=== PATIENT | male | born 1975 | race Hispanic/Latino ===

== ENCOUNTER 2021-04-28 08:23 | Emergency (ER) | payer SELFPAY ==
[~2021-04-28] VITALS: Ht 162.6 cm; Wt 70.3 kg
[2021-04-28] MEDS ORDERED: CLONIDINE HCL 0.1 MG TAB PO ONE (08:45)
[2021-04-28] MEDS ORDERED: CLONIDINE HCL 0.1 MG TAB ONE (08:48)
[2021-04-28] MEDS ORDERED: LISINOPRIL10 MG PO (09:22)
[2021-04-28 09:34] VITALS: BP 176/86
== END 2021-04-28 09:36 | disposition home or self-care (01) ==
LOC: FSED 08:35
DX: I10 Essential (primary) hypertension (principal); R94.5 Abnormal results of liver function studies; F10.10 Alcohol abuse, uncomplicated
CPT/HCPCS: 80053; 81003; 85025; 99283